=== PATIENT | female | born 1980 | race Caucasian/White ===

== ENCOUNTER → 2020-06-22 | Outpatient (CLI) | payer BC | LOC: EXRD 12:26 | DX: R59.0 Localized enlarged lymph nodes (principal) | CPT/HCPCS: 76536 ==

== ENCOUNTER → 2021-07-16 | Outpatient (CLI) | payer BC | LOC: KOH-I 11:29 | DX: R05.9 Cough, unspecified (principal) | CPT/HCPCS: 71046 ==